=== PATIENT | female | born 1975 | race Caucasian/White ===

== ENCOUNTER 2021-06-27 14:50 | Outpatient (CLI) | payer BC, SELFPAY ==
--- NOTE | ~2021-06-27 | CT_ITS ---
EXAMINATION: CT brain wo/w con DATE: 06/27/2021 15:23 INDICATION: Dizziness. Headache. TECHNIQUE: Computed tomography (CT) of the head was performed without and with 100 mL Omnipaque 350 i ntravenous contrast. The mA was adjusted according to patient size. Iterative reconstruction techniqu e was employed. The dose-length product was 1210.67 mGy-cm. COMPARISON: Head CT 09/30/2019 FINDINGS: There is diffuse brain volume loss. There is an old infarct involving the right frontal lob e and right insula. There is no intracranial hemorrhage, acute infarction, or abnormal intracranial m ass lesion. The ventricles are normal in size. There is mild mucosal thickening in the ethmoid sinuse s. The mastoid air cells are normal. IMPRESSION: 1. Old infarct involving the right frontal lobe and right insula. Reviewed, dictated and finalized at location B.
[2021-06-27 16:08] LABS: Basophils Percent Auto 0.5 % (0.2-1.2); Eosinophils Absolute Auto 0.3 K/mm3 (0-0.3); Eosinophils Percent Auto 4.1 % (0-4.4); Immature Granulocyte Absolute 0.02 K/mm3 (0.00-0.031); Immature Granulocyte Percent A 0.3 % (0-0.5); Lymphocytes Absolute Auto 2.05 K/mm3 (0.9-3.2); Mean Corpuscular HGB Conc 32.4 g/dl (32-36); Mean Corpuscular Hemoglobin 31.9 pg (26-34); Mean Corpuscular Volume 98.4 fl (80-100); Mean Platelet Volume 9.3 fl (7.4-10.4); Monocytes Absolute Auto 0.5 K/mm3 (0.1-0.6); Monocytes Percent Auto 7.6 % (2.6-8.5); Neutrophils Absolute Auto 3.2 K/mm3 (1.3-6.7); Neutrophils Percent Auto 53.5 % (45.5-73.1); Platelet Count Result 210 k/mm3 (150-375); Red Blood Count 3.76 M/mm3 (4.2-5.4); Red Cell Distribution Width 12.4 % (11.5-14.5)
[2021-06-27 16:25] LABS: Anion Gap 8 mmol/L (8-16); Blood Urea Nitrogen 10 mg/dL (7-17); CRP < 0.5 mg/dL (<1.0); Calcium 8.9 mg/dL (8.4-10.2); Carbon Dioxide 26 mmol/L (22-30); Chloride 98 mmol/L (98-107); Estimated Glomerular Filt Rate > 60; Glucose 78 mg/dL (65-110); Potassium 3.9 mmol/L (3.4-5.0); Sodium 132 mmol/L (137-145)
[2021-06-27 16:38] LABS: INR 1.5; Prothrombin Time 17.8 Seconds (11.1-14.7)
[2021-06-27 17:35] LABS: Erythrocyte Sedimentation Rate 20 mm/hr (0-20)
== END 2021-06-27 14:51 | disposition home or self-care (01) ==
LOC: ANHIMG 14:57
PROVIDERS: PCP Internal Medicine; Visit Provider Internal Medicine
DX: E78.2 Mixed hyperlipidemia (principal); R51.9 Headache, unspecified; R42 Dizziness and giddiness; Z86.73 Personal history of transient ischemic attack (TIA), and cerebral infarction without residual deficits; Z79.01 Long term (current) use of anticoagulants; I10 Essential (primary) hypertension; Z79.899 Other long term (current) drug therapy
CPT/HCPCS: 36415; 70470; 80048; 85025; 85610; 85652; 86140; Q9967

== ENCOUNTER → 2021-07-29 10:45 | Outpatient (CLI) | payer BC, SELFPAY ==
--- NOTE | ~2021-07-29 | XR_ITS ---
EXAMINATION: XR UGIAC w small bowel EXAM DATE: 07/29/2021 13:19 INDICATION: R11.0 - Nausea . 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 Standard single and double contrast barium upper GI examina tion and small bowel series was performed by radiologist Avery Gardner M.D. Terminal ileum was visualiz ed on the final KUB. Pulsed dose reduction fluoroscopy was used with fluoroscopic time of 0.6 minutes . The DAP for this procedure was 7.9 Gycm2. A total of 114 images obtained for the exam. There is no prior study for comparison. FINDINGS: There is no esophageal stricture, diverticulum or mass identified. Gastroesophageal juncti on is normal in appearance. Small amount of reflux demonstrated. The stomach has a normal appearance without evidence of mass lesion, ulceration or filling defect. T here is normal rugal fold pattern. The duodenum and duodenal sweep are normal in appearance. Ileal and jejunal fold patterns are normal. There is no small bowel wall thickening or mass effect d isplacing small bowel. There are no intraluminal filling defects identified. There is no small zaida l dilation. Terminal ileum is normal in appearance. Contrast reached the colon one hours time. IMPRESSION: Small amount of gastroesophageal reflux. Reviewed, dictated and finalized at location G.
== END ==
PROVIDERS: PCP Internal Medicine; Visit Provider Internal Medicine
DX: R11.0 Nausea (principal); K21.9 Gastro-esophageal reflux disease without esophagitis
CPT/HCPCS: 74246; 74248

== ENCOUNTER 2021-12-23 00:16 | Day surgery (SDC) | payer BC, SELFPAY ==
[2021-12-15 12:56] VITALS: BMI 32.6
--- NOTE | 2021-12-15 13:21 | PC.NURSE ---
pt called with instructions for egd scheduled dec 23, 2021. let her know that she will have to hold her warfarin prior to procedure but this office has not gotten specific instructions from dr hernandez office yet. they are closed today due to weather. after this instructions is obtained, will call her back. she voiced understanding.
--- NOTE | 2021-12-15 14:53 | PC.NURSE ---
dr hernandez faxed for that pt needs to hold warfarin for four days prior to procedure. pt called and instructed last dose will be dec 18. pt voiced understanding.
--- NOTE | 2021-12-22 09:44 | WPDANESEPPF ---
Anes - Initial Pre Proc Eval Procedure: Operation Date: 12/23/21 07:30 Proposed Procedures p Esophagogastroduodenoscopy - Patel Valentin MD Date/Time: 12/22/21 09:44 Surgeon: Patel Valentin MD Pre Op Diagnosis: nausea Patient Data Age: 46 Gender: F Height: 1.63 m Weight: 86.3 kg Allergies Allergy/AdvReac Type Severity Reaction Status Date / Time No Known Drug Allergies Allergy none Verified 12/23/21 06:26 Home Medications Medication Instructions Recorded Confirmed Type atorvastatin 40 mg tablet 40 mg PO DAILY 09/26/19 12/23/21 History bpxpblhdix-ytgiamtdpxyuo-dcuucizk 1 cap PO Q4H PRN 09/26/19 12/23/21 History 50 mg-300 mg-40 mg capsule erenumab-aooe 70 mg/mL 70 mg SUB-Q MONTHLY 09/26/19 12/23/21 History subcutaneous auto-injector fluticasone propionate 50 2 spray NASAL DAILY 09/26/19 12/23/21 History mcg/actuation nasal spray,suspension crisaborole 2 % topical ointment 1 applic TOPICAL BID #60 gm 07/29/20 12/23/21 Rx warfarin 1 mg tablet 1 mg PO BID #180 tablet 12/30/20 12/23/21 Rx cholecalciferol (vitamin D3) 25 2,000 unit PO DAILY cap 01/05/21 12/23/21 History mcg (1,000 unit) capsule hydrochlorothiazide 12.5 mg capsule See Rx Instructions .ROUTE 03/15/21 12/23/21 Rx .COMPLEX #90 capsule lisinopril 10 mg tablet See Rx Instructions .ROUTE 03/15/21 12/23/21 Rx .COMPLEX #90 tablet meclizine 25 mg tablet 25 mg PO TID PRN #30 tablet 06/27/21 12/23/21 Rx dicyclomine 10 mg capsule 10 mg PO TID #90 cap 06/30/21 12/23/21 Rx famotidine 20 mg tablet 20 mg PO BID tablet 08/03/21 12/23/21 History warfarin 4 mg tablet See Rx Instructions .ROUTE 08/15/21 12/23/21 Rx .COMPLEX #180 tablet cholecalciferol (vitamin D3) 1,250 See Rx Instructions .ROUTE 10/05/21 12/23/21 Rx mcg (50,000 unit) capsule .COMPLEX #10 cap gabapentin 600 mg PO DAILY 12/15/21 12/23/21 History Patient hx anesthesia problems: none Family hx anesthesia problems: none Results Review: All pre-operative results and documents have been reviewed as part of the pre-operative evaluation. 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 Cognitive changes Dizziness Encounter for preventive health examination Encounter for routine adult health examination without abnormal findings Facial eczema Facial rash Fatty liver Follow up Frequent headaches GERD (gastroesophageal reflux disease) Headache History of CVA (cerebrovascular accident) Hyperlipidemia 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 Migraines Nausea 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 Trigeminal neuralgia Vitamin D deficiency Family History Family History Mother Family history of malignant neoplasm of breast in first degree relative Hypertension Family history of heart disease in male family member before age 55 Family history of cardiovascular disease Father Patient's father is Acute myocardial infarction Grandparent Hypertension Cerebrovascular accident Family history of chronic obstructive pulmonary disease Family history of lung cancer Family history of malignant neoplasm of bone Acute myocardial infarction Social History Social History Smoking status: Former smoker Tobacco type: cigarettes Second hand tobacco smoke exposure: No Alcohol intake: never Alcohol use details: weekly Substance use: never Substance use type: does not use Living arrangements: with family Spiritual care concerns: No Anes - Eval Final PreProcedure Day of Procedure 12/22/21 09:44 Patient weight: obese Heart: regular rat
[2021-12-23 06:20] VITALS: BP 118/84; PULSE 69; RESP 18; TEMP 36.4; O2SAT 100; BMI 33.8
[2021-12-23] MEDS: LACTATED RINGERS 1,000 ML 150 ML IV CONT (06:46)
[2021-12-23 07:13] LABS: Prothrombin Time 12.9 Seconds (11.1-14.7)
--- NOTE | 2021-12-23 07:22 | WPDGICN ---
Assessment and Plan Assessment and plan (1) Nausea: Code(s): R11.0 - Nausea Status: Acute Assessment and Plan: patient with persistent nausea that is occurred frequently over the last 6 months. She may have had some lesser symptoms over previous year prior to that. No specific etiology identified although she does have a previous history of a CVA. Plan is for EGD to assess and exclude upper GI etiology. Continue trial of Pepcid for possible acid induced nausea has not been of any benefit. Further recommendations will be given after endoscopy. GI Consult Note Consult date/time: 12/23/21 07:22 HPI: Rossy Smith is a 46 year old female Presents for EGD. Patient's current weight appetite and bowel movements are normal. She reports nausea that has been present briefly over the last couple years but more intense over last 5 months. She states she will get nauseous 3 to 4 times a week and this will last all day long. It is it is often associated with dizziness. Recent CT scan was unremarkable. She has had no change with medications. Recent trial of Pepcid initially felt beneficial but has had no benefit on continuing this medication. Patient does have a distant history of a CVA. Recent CT scan reveals no changes. Patient presents today for EGD to exclude organic upper GI etiology for her nausea. 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 Cognitive changes Dizziness Encounter for preventive health examination Encounter for routine adult health examination without abnormal findings Facial eczema Facial rash Fatty liver Follow up Frequent headaches GERD (gastroesophageal reflux disease) Headache History of CVA (cerebrovascular accident) Hyperlipidemia Hypertension 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 Migraines Nausea 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 Trigeminal neuralgia Vitamin D deficiency Family History Family History Mother Family history of malignant neoplasm of breast in first degree relative Hypertension Family history of heart disease in male family member before age 55 Family history of cardiovascular disease Father Patient's father is Acute myocardial infarction Grandparent Hypertension Cerebrovascular accident Family history of chronic obstructive pulmonary disease Family history of lung cancer Family history of malignant neoplasm of bone Acute myocardial infarction Social History Social History Smoking status: Former smoker Tobacco type: cigarettes Second hand tobacco smoke exposure: No Alcohol intake: never Alcohol use details: weekly Substance use: never Substance use type: does not use Living arrangements: with family Spiritual care concerns: No Meds Home Medications and Allergies Home Medications Medication Instructions Recorded Confirmed Type atorvastatin 40 mg tablet 40 mg PO DAILY 09/26/19 12/23/21 History ptijyleezu-fthjergllccxi-vdgicyom 1 cap PO Q4H PRN 09/26/19 12/23/21 History 50 mg-300 mg-40 mg capsule erenumab-aooe 70 mg/mL 70 mg SUB-Q MONTHLY 09/26/19 12/23/21 History subcutaneous auto-injector fluticasone propionate 50 2 spray NASAL DAILY 09/26/19 12/23/21 History mcg/actuation nasal spray,suspension crisaborole 2 % topical ointment 1 applic TOPICAL BID #60 gm 07/29/20 12/23/21 Rx warfarin 1 mg tablet 1 mg PO BID #180 tablet 12/30/20 12/23/21 Rx cholecalciferol (vitamin D3) 25 2,000 unit
[2021-12-23] MEDS: BENZOCAINE (*SP) 60 ML SPRAY CAN (HURRICAINE) 1 SPRAY MUCOUS MEM (07:31)
[2021-12-23 07:40] VITALS: BP 103/79; PULSE 72; RESP 17; O2SAT 96
[2021-12-23 07:44] VITALS: BP 103/79; PULSE 72; RESP 17; O2SAT 96
[2021-12-23 07:50] VITALS: BP 107/74; PULSE 63; RESP 17; O2SAT 98
[2021-12-23 08:00] VITALS: BP 110/78; PULSE 60; RESP 16; O2SAT 100
== END 2021-12-23 08:06 | disposition home or self-care (01) ==
PROVIDERS: PCP Internal Medicine; Visit Provider Internal Medicine Gastroenterology
PROC: 0DJ08ZZ Inspection of Upper Intestinal Tract, Via Natural or Artificial Opening Endoscopic (ICD-10-PCS; CPT 43235; principal; 2021-12-23 07:30)
DX: R11.0 Nausea (principal); K31.7 Polyp of stomach and duodenum; Z86.73 Personal history of transient ischemic attack (TIA), and cerebral infarction without residual deficits; F98.8 Other specified behavioral and emotional disorders with onset usually occurring in childhood and adolescence; D68.61 Antiphospholipid syndrome; K21.9 Gastro-esophageal reflux disease without esophagitis; I10 Essential (primary) hypertension; E78.5 Hyperlipidemia, unspecified; E55.9 Vitamin D deficiency, unspecified; K76.0 Fatty (change of) liver, not elsewhere classified; R41.89 Other symptoms and signs involving cognitive functions and awareness; G50.0 Trigeminal neuralgia; Z87.891 Personal history of nicotine dependence; Z79.01 Long term (current) use of anticoagulants; E66.9 Obesity, unspecified; Z68.33 Body mass index [BMI] 33.0-33.9, adult
CPT/HCPCS: 43251; 36415; 85610; 88305; J2704; J7120

== ENCOUNTER → 2022-07-21 08:21 | Outpatient (CLI) | payer BC, SELFPAY ==
--- NOTE | ~2022-07-21 | CT_ITS ---
EXAMINATION: CT abdomen pelvis wo con DATE: 07/21/2022 08:35 INDICATION: Microscopic hematuria TECHNIQUE: Computed tomography (CT) of the abdomen and pelvis was performed without intravenous contr ast. The dose-length product (DLP) was 979.70 mGy-cm. Automated exposure control and iterative recons truction technique were employed. COMPARISON: 01/16/2008 FINDINGS: The lung bases are clear. The heart size is normal. The liver, spleen, pancreas, gallbladde r, and adrenal glands are normal. The kidneys are unremarkable. No stones are identified in the kidne ys, ureters, or bladder. There is no hydronephrosis or hydroureter. There are chronic mildly enlarged abdominal lymph nodes, unchanged since 2007. There is no free intraperitoneal gas or evidence of bow el obstruction. Uterine fibroids are noted. Low attenuation areas of the cervix likely reflect naboth sayda cysts. There is mild lumbar spondylosis. IMPRESSION: 1. No CT correlate for the patient's symptoms. Reviewed, dictated and finalized at location B.
== END ==
PROVIDERS: PCP Internal Medicine; Visit Provider Internal Medicine
DX: R31.29 Other microscopic hematuria (principal)
CPT/HCPCS: 74176

== ENCOUNTER 2023-05-09 07:49 | Outpatient (CLI) | payer BC, SELFPAY ==
--- NOTE | ~2023-05-09 | MM_ITS ---
EXAMINATION: MM screening [facility] BI w [place] HISTORY: Screening mammogram TECHNIQUE: Craniocaudal and mediolateral oblique 3-D tomosynthesis images were obtained and synthetic 2-D images were generated. CAD analysis was submitted and interpreted. COMPARISON: No prior mammogram is available for comparison at this institution. BREAST PARENCHYMAL COMPOSITION: The breasts are heterogeneously dense, which may obscure small masses . FINDINGS: Loop recorder is noted on the left. Asymmetry and possible up to 12 mm mass is suggested in the upper outer left breast posteriorly. Diag nostic left mammogram and left breast ultrasound examination are recommended. Asymmetry and possible 8 mm mass in the central right breast approximately 2.6 cm deep to the nipple (MLO Tomosynthesis image 41/76; diagnostic right mammogram and right breast ultrasound examination ar e recommended. IMPRESSION: 1. Bilateral mammographic asymmetries 2. Bilateral diagnostic mammography and breast ultrasound examination are recommended BI-RADS Category 0: Incomplete: Needs additional imaging evaluation. Reviewed, dictated and finalized at location A. IMPRESSION: 1. Bilateral mammographic asymmetries 2. Bilateral diagnostic mammography and breast ultrasound examination are recom mended BI-RADS Category 0: Incomplete: Needs additional imaging evaluation.
== END 2023-05-09 07:50 | disposition home or self-care (01) ==
LOC: ANHIMG 07:51
PROVIDERS: PCP Internal Medicine; Visit Provider Nurse Practitioner Obstetrics & Gynecology
DX: Z12.31 Encounter for screening mammogram for malignant neoplasm of breast (principal); R92.8 Other abnormal and inconclusive findings on diagnostic imaging of breast
CPT/HCPCS: 77063; 77067

== ENCOUNTER 2023-05-21 10:23 | Outpatient (CLI) | payer BC, SELFPAY ==
--- NOTE | ~2023-05-21 | MMUS_ITS ---
EXAMINATION: MM diagnostic [facility] BI w [place], US breast BI limited HISTORY: Bilateral mammographic asymmetries reported on 05/09/2023 screening mammogram TECHNIQUE: Additional 3-D tomosynthesis images of both breasts were performed and synthetic 2-D image s were generated. CAD analysis was submitted and interpreted. High resolution bilateral Limited breas t ultrasound examination at the direction of Dr. Drake was performed. COMPARISON: 05/09/2020 bilateral screening mammogram FINDINGS: MAMMOGRAPHIC FINDINGS: The areas of asymmetry appear to compress out, without suspicious mass or architectural distortion no zoë. The heterogeneously dense stroma however may obscure masses. ULTRASOUND: Limited right breast ultrasound examination: Scanning of the right breast from 5:00 to 7:00 reveals a septated cyst at 7:00 near the nipple which measures approximately 3.6 x 4.2 x 7 mm. There is throug h transmission posterior enhancement. No suspicious mass or shadowing is detected. Limited left breast ultrasound examination: Scanning of the left breast subareolar area and from 12:0 0 to 3:00 reveals a 4.7 x 12.7 x 8.6 mm cyst with through transmission and posterior enhancement. No suspicious mass or shadowing is detected. IMPRESSION: 1. Benign findings; no mammographic or sonographic evidence of malignancy 2. Routine annual mammographic screening is recommended BI-RADS Category 2: Benign finding(s). Reviewed, dictated and finalized at location A. IMPRESSION: 1. Benign findings; no mammographic or sonographic evidence of malignancy 2. Routine annual mammographic screening is recommended BI-RADS Category 2: Benign finding(s).
== END 2023-05-21 10:24 | disposition home or self-care (01) ==
LOC: CHSIMG 10:25
PROVIDERS: PCP Internal Medicine; Visit Provider Nurse Practitioner Obstetrics & Gynecology
DX: R92.8 Other abnormal and inconclusive findings on diagnostic imaging of breast (principal)
CPT/HCPCS: 76642; 77062; 77066; G0279

== ENCOUNTER 2024-05-29 08:50 | Outpatient (CLI) | payer BC, SELFPAY ==
--- NOTE | ~2024-05-29 | XR_ITS ---
XR cervical spine min 6V Ordering provider: Micha Pedroza MD History: . R20.0 - Anesthesia of skin . Comparison: None. FINDINGS: VERTEBRAL BODIES: Normal height and alignment. No visible fracture or subluxation. The dens is intact . DISK SPACES: Narrowing of the disc C5-C6. PARASPINOUS SOFT TISSUES: No prevertebral soft tissue swelling. IMPRESSION: No acute osseous abnormality cervical spine. Degenerative disc disease at the level of C5-C6. Reviewed, dictated and finalized at location A.
== END 2024-05-29 08:51 ==
PROVIDERS: PCP Internal Medicine; Visit Provider Internal Medicine
DX: M50.322 Other cervical disc degeneration at C5-C6 level (principal); R20.0 Anesthesia of skin
CPT/HCPCS: 72052

== ENCOUNTER 2024-07-02 12:37 | Outpatient (CLI) | payer BC, SELFPAY ==
--- NOTE | 2024-07-02 14:30 | NEURO_ITS ---
Impression: # Complains of numbness of right hand. # Normal Nerve Conduction Study. No Carpal Tunnel Syndrome or ulnar neuropathy. # Normal needle/EMG exam. Nerve Conduction Studies Anti Sensory Summary Table Stim Site NR Peak (ms) P-T Amp (?V) Site1 Site2 Delta-P (ms) Dist (cm) Emilio (m/s) Right Median Anti Sensory (2-3nd Digit) Wrist 3.4 71.1 Wrist 2-3nd Digit 3.4 14.0 41 Wrist 3.4 63.8 Wrist 2-3nd Digit 3.4 14.0 41 Right Radial Anti Sensory (Base 1st Digit) Wrist 2.3 17.4 Wrist Base 1st Digit 2.3 0.0 Right Ulnar Anti Sensory (5th Digit) Wrist 2.8 58.1 Wrist 5th Digit 2.8 14.0 50 Motor Summary Table Stim Site NR Onset (ms) O-P Amp (mV) Site1 Site2 Delta-0 (ms) Dist (cm) Emilio (m/s) Right Median Motor (Abd Poll Brev) Wrist 3.4 1.4 Elbow Wrist 4.9 28.0 57 Elbow 8.3 1.3 Right Ulnar Motor (Abd Dig Minimi) Wrist 2.5 8.4 A Elbow Wrist 5.0 29.0 58 A Elbow 7.5 7.6 F Wave Studies NR F-Lat (ms) L-R F-Lat (ms) Right Median (Mrkrs) (Abd Poll Brev) 28.01 Right Ulnar (Mrkrs) (Abd Dig Min) 26.77 EMG Side Muscle Nerve Root Ins Act Fibs Amp Dur Recrt Comment Right 1stDorInt Ulnar C8-T1 Nml Nml Nml Nml Nml Right Ext Indicis Radial (Post Int) C7-8 Nml Nml Nml Nml Nml Right Ext Digitorum Radial (Post Int) C7-8 Nml Nml Nml Nml Nml Right BrachioRad Radial C5-6 Nml Nml Nml Nml Nml Right PronatorTeres Median C6-7 Nml Nml Nml Nml Nml Right Abd Poll Brev Median C8-T1 Nml Nml Nml Nml Nml Right ABD Dig Min Ulnar C8-T1 Nml Nml Nml Nml Nml MTDD
== END 2024-07-02 12:38 | disposition home or self-care (01) ==
LOC: ANHNEURO 12:39
PROVIDERS: PCP Internal Medicine; Visit Provider Internal Medicine
DX: R20.2 Paresthesia of skin (principal); R20.0 Anesthesia of skin
CPT/HCPCS: 95886; 95909

== ENCOUNTER 2024-07-24 08:57 | Outpatient (CLI) | payer BC, SELFPAY ==
--- NOTE | ~2024-07-24 | MM_ITS ---
EXAMINATION: MM screening [facility] [place] HISTORY: Screening mammogram, family history of breast cancer in her mother. TECHNIQUE: Craniocaudal and mediolateral oblique 3-D tomosynthesis images were obtained and synthetic 2-D images were generated. CAD analysis was submitted and interpreted. COMPARISON: 05/09/2023, 09/28/2020, 09/09/2019 BREAST PARENCHYMAL COMPOSITION:Not Dense. There are scattered areas of fibroglandular density. FINDINGS: No suspicious mass, calcification, or architectural distortion are identified in either shanda ast to suggest malignancy. There has been no suspicious interval change. IMPRESSION: No mammographic evidence of malignancy. Recommend routine screening mammography in one year. BI-RADS Category 1: Negative Reviewed, dictated and finalized at location .
== END 2024-07-24 08:58 | disposition home or self-care (01) ==
LOC: ANHIMG 08:58
PROVIDERS: PCP Internal Medicine; Visit Provider Nurse Practitioner Obstetrics & Gynecology
DX: Z12.31 Encounter for screening mammogram for malignant neoplasm of breast (principal)
CPT/HCPCS: 77063; 77067

== ENCOUNTER 2024-10-02 13:53 | Outpatient (CLI) | payer BC, SELFPAY ==
--- NOTE | ~2024-10-02 | DEXA_ITS ---
Bone Density Report Name: SHARON DAVIS Age: 49 Sex: Female Ethnicity: White Date of : 1975 Indication: postmenopausal; screening for osteoporosis; Referring Provider: DANE MONROY Study: Bone densitometry was performed. Exam Date: October 02, 2024 Accession number: [id number] Bone Density: Region BMD T-score Z-score Classification AP Spine(L1-L4) 0.803 -2.2 -1.5 Osteopenia Femoral Neck (Left) 0.787 -0.6 0.2 Normal Total Hip (Left) 0.958 0.1 0.6 Normal Femoral Neck (Right) 0.845 0.0 0.7 Normal Total Hip (Right) 0.991 0.4 0.9 Normal Femoral Neck Mean 0.816 -0.3 0.4 Normal Total Hip Mean 0.975 0.3 0.7 Normal World Health Organization criteria for BMD impression classify patients as: Normal (T-score at or above -1.0), Osteopenia (T-score between -1.0 and -2.5), or Osteoporosis (T-score at or below -2.5). 10-year Fracture Risk(1): Major Osteoporotic Fracture 3.5% Hip Fracture 0.1% Reported Risk Factors: [place] (), Neck BMD=0.787, BMI=33.6 (1) FRAX(R) Version 3.08. Fracture probability calculated for an untreated patient. Fracture probability may be lower if the patient has received treatment. Clinical Information Provided by Patient: Has used the following medications: Vitamin D, Calcium Patient maximum height was 64.5 Menopause Age: 48 No regular weight bearing exercise Does not regularly consume dairy products Drinks caffeinated beverages Onset of menses at age 10 Number of children 0 Impression: The patient has low bone mass, based on the Total Spine T-score. Discussion: BONE DENSITY IS LOW AT ONE OR MORE SKELETAL SITES. This patient's lowest T-score is low at one or more skeletal sites. It meets the World Health Organization's (WHO) criteria for ?low bone mass? (T-score between -1.0 and -2.5). The patient's 10-year risk of fracture as calculated by FRAX is less than the threshold where pharmacological therapy is recommended by the National Osteoporosis Foundation (NOF). However, all treatment decisions require clinical judgment and consideration of individual patient factors, including patient preferences, comorbidities, previous drug use, risk factors not captured in the FRAX model (e.g., frailty, falls, vitamin D deficiency, increased bone turnover, interval significant decline in bone density) and possible under or overestimation of fracture risk by FRAX. The patient should follow a healthful lifestyle (good nutrition with adequate calcium and vitamin D, and appropriate weight-bearing exercise). Follow-Up: Consider repeating this study in 2 to 3 years to reassess this patient's status, or sooner if there is some new clinical indication. Reported by: OMA on 10/02/2024 2:15:00 PM. Reviewed, dictated and finalized at location A.
== END 2024-10-02 13:54 | disposition home or self-care (01) ==
LOC: CHSIMG 13:56
PROVIDERS: PCP Internal Medicine; Visit Provider Internal Medicine
DX: Z78.0 Asymptomatic menopausal state (principal); E55.9 Vitamin D deficiency, unspecified; M85.88 Other specified disorders of bone density and structure, other site
CPT/HCPCS: 77080

== ENCOUNTER 2025-07-27 12:56 | Outpatient (CLI) | payer BC, SELFPAY ==
--- NOTE | ~2025-07-27 | MM_ITS ---
EXAMINATION: MM screening [facility] [place] HISTORY: Screening TECHNIQUE: Craniocaudal and mediolateral oblique 3-D tomosynthesis images were obtained and synthetic 2-D images were generated. CAD analysis was submitted and interpreted. COMPARISON: 05/09/2023 BREAST PARENCHYMAL COMPOSITION: There are scattered areas of fibroglandular density. FINDINGS: There is no evidence of suspicious mass, calcification, or architectural distortion to suggest malignancy. There has been no suspicious interval change. IMPRESSION: 1. No mammographic evidence of malignancy. Recommend routine screening mammography in one year. BI-RADS Category 2: Benign finding(s) Reviewed, dictated and finalized at location Q. IMPRESSION: 1. No mammographic evidence of malignancy. Recommend routine screening mammogra phy in one year. BI-RADS Category 2: Benign finding(s)
== END 2025-07-27 12:57 | disposition home or self-care (01) ==
LOC: MICIMG 12:56
PROVIDERS: PCP Internal Medicine; Visit Provider Student in an Organized Health Care Education/Training Program
DX: Z12.31 Encounter for screening mammogram for malignant neoplasm of breast (principal)
CPT/HCPCS: 77063; 77067